=== PATIENT | female | born 1965 | race Caucasian/White ===

== ENCOUNTER 2018-02-27 10:50 | Inpatient (IN) | payer MEDICAID ==
[~2018-02-27] VITALS: Ht 167.6 cm; Wt 103.5 kg
[~2018-02-27 10:50] MED LIST: ACET-1025 PO
[2018-02-27] MEDS ORDERED: HYDR-565 PO (10:59)
[2018-02-27] MEDS ORDERED: CHOL10002 PO (11:00)
[2018-02-27] MEDS ORDERED: CALC-854 PO (11:00)
[2018-02-27] MEDS ORDERED: DIPH25CA83 PO (11:01)
[2018-02-27] MEDS ORDERED: ESTR1TAB19 PO (11:02)
[2018-02-27] MEDS ORDERED: PROP20TA6 PO (11:03)
[2018-02-27] MEDS ORDERED: FURO-150 PO (11:04)
[2018-02-27] MEDS ORDERED: VENL75CA61 PO (11:04)
[2018-02-27] MEDS ORDERED: VITA1TAB20 PO (11:05)
[2018-02-27 11:41] LABS: BASOPHILS % (AUTO) 0.5 % (0-1); EOSINOPHILS # (AUTO) 0.2 X10'3 (0-0.9); EOSINOPHILS % (AUTO) 4.4 % (0-6); LYMPHOCYTES # (AUTO) 1.3 X10'3 (1.1-4.8); LYMPHOCYTES % (AUTO) 33.1 % (21-51); MEAN CORPUSCULAR HGB CONC 34.6 % (33.0-36.5); MEAN CORPUSCULAR VOLUME 101.3 FL (78-98); MONOCYTES # (AUTO) 0.4 X10'3 (0-0.9); MONOCYTES % (AUTO) 9.5 % (2-12); NEUTROPHILS # (AUTO) 2.1 X10'3 (1.8-7.7); NEUTROPHILS % (AUTO) 52.5 % (42-75); PRE OP HEMATOCRIT 35.2 % (35.0-45.0); PRE OP HEMOGLOBIN 12.2 g/dL (12.0-16.0); PRE OP PLATELET COUNT 217 X10'3 (140-440); RED BLOOD COUNT 3.48 X10'6 (4.20-5.60); RED CELL DISTRIBUTION WIDTH 12.4 % (11.5-14.5)
[2018-02-27 11:49] LABS: PRE OP PROTIME 10.1 SECONDS (9.0-12.0)
[2018-02-27 11:57] LABS: ALBUMIN 3.4 G/DL (3.4-5.0); ALBUMIN/GLOBULIN RATIO 1.1 (1.1-1.5); ALKALINE PHOSPHATASE 90 IU/L (46-116); BLOOD UREA NITROGEN 9 MG/DL (7-18); BUN/CREATININE RATIO 14.3 (6.6-38.0); CALCIUM 8.7 MG/DL (8.5-10.1); CHLORIDE 104 MMOL/L (99-107); CREATININE 0.63 MG/DL (0.40-0.90); PRE OP ALT 25 U/L (30-65); PRE OP ANION GAP 8 (8-16); PRE OP AST 32 U/L (10-37); PRE OP BILIRUB, TOTAL 0.5 MG/DL (0.0-1.0); PRE OP GLUCOSE 141 MG/DL (70-104); PRE OP POTASSIUM 4.1 MMOL/L (3.4-5.1); PRE OP SODIUM 139 MMOL/L (135-145); TOTAL CARBON DIOXIDE 26.9 MMOL/L (24-32); TOTAL PROTEIN 6.4 G/DL (6.4-8.2); eGFR > 90 ML/MIN
[2018-02-28] VITALS (20 sets, daily range): BP systolic 87–135; BP diastolic 49–88
[2018-02-28] MEDS ORDERED: ringers solution, lacted 1,000 ML IV SCH ×2 (05:00→10:57)
[2018-02-28] MEDS ORDERED: ceFAZolin inj. 2,000 MG in normal saline 100ml IV soln 100 ML IV ONE (05:30)
[2018-02-28] MEDS ORDERED: VANCOMYCIN INJ 1000 MG in NORMAL SALINE 250ml IV.SOLN IV ONE (05:30)
[2018-02-28] MEDS ORDERED: tranexamic acid inj. 1,000 MG in normal saline 100ml IV soln 90 ML IV ONE ×2 (05:30→09:30)
[2018-02-28] MEDS ORDERED: DOCUMENT DATE & TIME OF BETA-BLOCKER PO ONE (05:30)
[2018-02-28] MEDS ORDERED: famotidine 20mg tablet PO ONE (05:30)
[2018-02-28] MEDS ORDERED: ketorolac trometh. 30mg/ml inj. ONE (06:50)
[2018-02-28] MEDS ORDERED: ROPIVAcaine 0.5% (5mg/ml) 30ml vial ONE ×2 (06:51→07:12)
[2018-02-28] MEDS ORDERED: vancomycin 1,000mg inj ONE (06:51)
[2018-02-28] MEDS ORDERED: LIDOcaine 1% (10mg/ml) 2ml vial ONE (07:26)
[2018-02-28] MEDS ORDERED: ketorolac trometh. 30mg/ml inj. IM ONE (09:38)
[2018-02-28] MEDS ORDERED: ROPIVAcaine 0.5% (5mg/ml) 30ml vial IJ ONE (09:39)
[2018-02-28] MEDS ORDERED: tetracaine 1% (10mg/ml) pres. free inj. ONE (09:59)
[2018-02-28] MEDS ORDERED: BUPIVAcaine 0.5% inj/PF 30 ml vial ONE (10:00)
[2018-02-28] MEDS ORDERED: morphine /PF 1mg/ml 10ml inj. ONE (10:01)
[2018-02-28] MEDS ORDERED: MIDAZolam 1mg/ml 10ml vial ONE (10:01)
[2018-02-28] MEDS ORDERED: fentaNYL/PF 50MCG/1 ML 2ML syringe ONE (10:02)
[2018-02-28] MEDS ORDERED: propofol inj 20 ML IV ONE ×5 (10:14→11:52)
[2018-02-28] MEDS ORDERED: MIDAZolam 5mg/ml 2ml vial ONE (10:23)
[2018-02-28] MEDS ORDERED: diphenhydrAMINE 50 mg/ml inj ONE (10:25)
[2018-02-28] MEDS ORDERED: ondansetron/PF 4mg/2ml inj IV PRN (11:00)
[2018-02-28] MEDS ORDERED: morphine 4 MG/ML inj SYRINge IV PRN ×2 (11:00)
[2018-02-28] MEDS ORDERED: hydrALAZINE 20mg/ml inj. IV PRN (11:00)
[2018-02-28] MEDS ORDERED: fentaNYL/PF 50MCG/1 ML 2ML syringe IV PRN ×2 (11:00)
[2018-02-28] MEDS ORDERED: labetalol 20mg/4ml (5mg/ml) syringe IV PRN (11:00)
[2018-02-28] MEDS ORDERED: acetaminophen 325mg tablet PO PRN ×2 (13:10)
[2018-02-28] MEDS ORDERED: bisacodyl 10mg suppository rectal RC PRN (13:10)
[2018-02-28] MEDS ORDERED: diphenhydrAMINE 25mg capsule PO PRN ×2 (13:10)
[2018-02-28] MEDS ORDERED: HYDROmorphone inj. 0.5 MG/0.5 ML DISP.SYRIN IV PRN ×2 (13:10)
[2018-02-28] MEDS ORDERED: furosemide 20MG tablet PO PRN (13:10)
[2018-02-28] MEDS: ondansetron/PF 4mg/2ml inj IV PRN (14:31)
[2018-02-28] MEDS: ceFAZolin 1GM/D5W- ADD-VANTAGE 50 ML IV SCH (15:19)
[2018-02-28] MEDS: potassium cl 20mEq in 1/2 NS 1,000 ML IV SCH (15:19)
[2018-02-28] MEDS: ketorolac tromethamine 15mg/ml inj. IV SCH ×2 (15:20→20:41)
[2018-02-28] MEDS: acetaminophen 325mg tablet PO SCH ×2 (15:21→20:42)
[2018-02-28] MEDS ORDERED: vancomycin/NS 1 GM ADD-VANTAGE 250 ML IV SCH (20:00)
[2018-02-28] MEDS: estradiol 1mg tablet PO SCH (20:42)
[2018-02-28] MEDS: venlafaxine XR 75mg capsule (Q24H) PO SCH (20:42)
[2018-02-28] MEDS: gabapentin 300mg capsule PO SCH (20:43)
[2018-02-28] MEDS: sennosides 8.6mg tablet PO SCH (20:43)
[2018-02-28] MEDS: vitamin B comp w/Vit. C tab 1 TAB TABLET PO SCH (20:43)
[2018-02-28] MEDS: oxyCODONE IR 5mg (immed. release) tablet PO PRN (22:27)
[2018-03-01] MEDS: ceFAZolin 1GM/D5W- ADD-VANTAGE 50 ML IV SCH (00:03)
[2018-03-01] MEDS: potassium cl 20mEq in 1/2 NS 1,000 ML IV SCH ×2 (00:04→08:32)
[2018-03-01] MEDS: ketorolac tromethamine 15mg/ml inj. IV SCH ×2 (01:29→08:34)
[2018-03-01] MEDS: acetaminophen 325mg tablet PO SCH ×4 (01:30→20:13)
[2018-03-01] MEDS: oxyCODONE IR 5mg (immed. release) tablet PO PRN ×3 (01:31→12:04)
[2018-03-01 02:26] VITALS: BP 95/54
[2018-03-01 06:10] LABS: BASOPHILS % (AUTO) 0.4 % (0-1); EOSINOPHILS # (AUTO) 0.1 X10'3 (0-0.9); EOSINOPHILS % (AUTO) 2.2 % (0-6); HEMATOCRIT 25.4 % (35.0-45.0); HEMOGLOBIN 8.7 g/dl (12.0-16.0); LYMPHOCYTES # (AUTO) 1.3 X10'3 (1.1-4.8); LYMPHOCYTES % (AUTO) 20.9 % (21-51); MEAN CORPUSCULAR HEMOGLOBIN 35.3 PG (27.0-31.0); MEAN CORPUSCULAR HGB CONC 34.4 % (33.0-36.5); MEAN CORPUSCULAR VOLUME 102.9 FL (78-98); MEAN PLATELET VOLUME 7.5 FL (7.4-10.4); MONOCYTES # (AUTO) 0.5 X10'3 (0-0.9); MONOCYTES % (AUTO) 8.3 % (2-12); NEUTROPHILS # (AUTO) 4.1 X10'3 (1.8-7.7); NEUTROPHILS % (AUTO) 68.2 % (42-75); PLATELET COUNT 174 X10'3 (140-440); RED BLOOD COUNT 2.47 X10'6 (4.20-5.60); RED CELL DISTRIBUTION WIDTH 12.4 % (11.5-14.5); WHITE BLOOD COUNT 6.1 X10'3 (4.5-11.0)
[2018-03-01 06:19] LABS: ANION GAP 6 (8-16); CHLORIDE 108 MMOL/L (99-107); POTASSIUM 4.2 MMOL/L (3.5-5.1); SODIUM 139 MMOL/L (135-145); TOTAL CARBON DIOXIDE 25.2 MMOL/L (24-32)
[2018-03-01] MEDS ORDERED: aspirin 325mg tablet PO SCH (08:30)
[2018-03-01] MEDS: vitamin D (cholecalciferol) 1,000 unit tablet PO SCH (08:36)
[2018-03-01] MEDS: calcium carbonate/vitamin D3 tablet PO SCH (08:36)
[2018-03-01] MEDS: gabapentin 300mg capsule PO SCH ×3 (08:36→20:14)
[2018-03-01] MEDS: vitamin B comp w/Vit. C tab 1 TAB TABLET PO SCH ×2 (08:38→20:13)
[2018-03-01] MEDS: propranolol 10mg tablet PO SCH (08:38)
[2018-03-01] MEDS: enoxaparin 30mg/0.3ml syringe SUBCUT SCH (08:42)
[2018-03-01 12:20] VITALS: BP 122/65
[2018-03-01 14:00] VITALS: BP 99/64
[2018-03-01] MEDS: oxyCODONE/APAP 10/325mg tablet PO PRN ×2 (15:30→20:13)
[2018-03-01 18:00] VITALS: BP 107/67
[2018-03-01] MEDS: sennosides 8.6mg tablet PO SCH (20:13)
[2018-03-01] MEDS: celeCOXIB 100mg capsule PO SCH (20:14)
[2018-03-01] MEDS: venlafaxine XR 75mg capsule (Q24H) PO SCH (20:14)
[2018-03-01] MEDS: estradiol 1mg tablet PO SCH (20:14)
[2018-03-01 22:00] VITALS: BP 105/52
[2018-03-02] MEDS: oxyCODONE/APAP 10/325mg tablet PO PRN ×5 (00:37→20:35)
[2018-03-02] MEDS: acetaminophen 325mg tablet PO SCH ×2 (01:47→08:00)
[2018-03-02 05:00] VITALS: BP 155/77
[2018-03-02 06:09] LABS: BASOPHILS % (AUTO) 0.3 % (0-1); EOSINOPHILS # (AUTO) 0.2 X10'3 (0-0.9); EOSINOPHILS % (AUTO) 3.8 % (0-6); HEMATOCRIT 24.7 % (35.0-45.0); HEMOGLOBIN 8.5 g/dl (12.0-16.0); LYMPHOCYTES % (AUTO) 18.8 % (21-51); MEAN CORPUSCULAR HEMOGLOBIN 35.3 PG (27.0-31.0); MEAN CORPUSCULAR HGB CONC 34.4 % (33.0-36.5); MEAN CORPUSCULAR VOLUME 102.7 FL (78-98); MEAN PLATELET VOLUME 7.6 FL (7.4-10.4); MONOCYTES # (AUTO) 0.5 X10'3 (0-0.9); MONOCYTES % (AUTO) 9.6 % (2-12); NEUTROPHILS # (AUTO) 3.7 X10'3 (1.8-7.7); NEUTROPHILS % (AUTO) 67.5 % (42-75); PLATELET COUNT 155 X10'3 (140-440); RED CELL DISTRIBUTION WIDTH 12.7 % (11.5-14.5); WHITE BLOOD COUNT 5.4 X10'3 (4.5-11.0)
[2018-03-02] MEDS: celeCOXIB 100mg capsule PO SCH ×2 (07:50→19:51)
[2018-03-02] MEDS: propranolol 10mg tablet PO SCH (07:50)
[2018-03-02] MEDS: gabapentin 300mg capsule PO SCH ×3 (07:50→19:51)
[2018-03-02] MEDS: calcium carbonate/vitamin D3 tablet PO SCH (07:51)
[2018-03-02] MEDS: vitamin D (cholecalciferol) 1,000 unit tablet PO SCH (07:51)
[2018-03-02] MEDS: vitamin B comp w/Vit. C tab 1 TAB TABLET PO SCH ×2 (07:51→19:51)
[2018-03-02] MEDS: enoxaparin 30mg/0.3ml syringe SUBCUT SCH (07:52)
[2018-03-02] MEDS: HYDROmorphone 1 mg/ml syringe ONE ×2 (07:55→07:57)
[2018-03-02 10:00] VITALS: BP 131/87
[2018-03-02] MEDS: magnesium hydroxide 30ml (MOM) UD suspension PO PRN (11:10)
[2018-03-02] MEDS ORDERED: HYDROmorphone 1 mg/ml syringe ONE (12:32)
[2018-03-02] MEDS ORDERED: HYDROmorphone 1 mg/ml syringe IV PRN ×2 (12:34→12:40)
[2018-03-02 18:00] VITALS: BP 147/86
[2018-03-02] MEDS: estradiol 1mg tablet PO SCH (19:52)
[2018-03-02] MEDS: sennosides 8.6mg tablet PO SCH (19:52)
[2018-03-02] MEDS: venlafaxine XR 75mg capsule (Q24H) PO SCH (20:04)
[2018-03-02 22:00] VITALS: BP 137/81
[2018-03-03] MEDS: oxyCODONE/APAP 10/325mg tablet PO PRN ×6 (00:17→20:57)
[2018-03-03 05:58] LABS: BASOPHILS % (AUTO) 0.6 % (0-1); EOSINOPHILS # (AUTO) 0.2 X10'3 (0-0.9); EOSINOPHILS % (AUTO) 4.8 % (0-6); HEMATOCRIT 24.6 % (35.0-45.0); HEMOGLOBIN 8.4 g/dl (12.0-16.0); LYMPHOCYTES # (AUTO) 1.4 X10'3 (1.1-4.8); LYMPHOCYTES % (AUTO) 29.9 % (21-51); MEAN CORPUSCULAR HGB CONC 34.3 % (33.0-36.5); MEAN CORPUSCULAR VOLUME 101.9 FL (78-98); MEAN PLATELET VOLUME 6.9 FL (7.4-10.4); MONOCYTES # (AUTO) 0.4 X10'3 (0-0.9); MONOCYTES % (AUTO) 9.6 % (2-12); NEUTROPHILS # (AUTO) 2.5 X10'3 (1.8-7.7); NEUTROPHILS % (AUTO) 55.1 % (42-75); PLATELET COUNT 193 X10'3 (140-440); RED BLOOD COUNT 2.41 X10'6 (4.20-5.60); RED CELL DISTRIBUTION WIDTH 12.4 % (11.5-14.5); WHITE BLOOD COUNT 4.5 X10'3 (4.5-11.0)
[2018-03-03 06:00] VITALS: BP 146/78
[2018-03-03] MEDS: vitamin B comp w/Vit. C tab 1 TAB TABLET PO SCH ×2 (07:55→20:18)
[2018-03-03] MEDS: gabapentin 300mg capsule PO SCH ×3 (07:55→20:18)
[2018-03-03] MEDS: propranolol 10mg tablet PO SCH (07:55)
[2018-03-03] MEDS: celeCOXIB 100mg capsule PO SCH ×2 (07:55→20:17)
[2018-03-03] MEDS: vitamin D (cholecalciferol) 1,000 unit tablet PO SCH (07:55)
[2018-03-03] MEDS: calcium carbonate/vitamin D3 tablet PO SCH (07:55)
[2018-03-03] MEDS: enoxaparin 30mg/0.3ml syringe SUBCUT SCH (07:55)
[2018-03-03] MEDS ORDERED: ENOX30DI4 SUBCUT (07:56)
[2018-03-03] MEDS: magnesium hydroxide 30ml (MOM) UD suspension PO PRN (08:06)
[2018-03-03 10:00] VITALS: BP 118/78
[2018-03-03 18:00] VITALS: BP 133/77
[2018-03-03] MEDS: venlafaxine XR 75mg capsule (Q24H) PO SCH (20:17)
[2018-03-03] MEDS: sennosides 8.6mg tablet PO SCH (20:18)
[2018-03-03] MEDS: estradiol 1mg tablet PO SCH (20:19)
[2018-03-03 22:00] VITALS: BP 112/67
[2018-03-04] MEDS: oxyCODONE/APAP 10/325mg tablet PO PRN ×2 (02:56→07:50)
[2018-03-04] MEDS: ondansetron/PF 4mg/2ml inj IV PRN (02:56)
[2018-03-04 05:00] VITALS: BP 115/76
[2018-03-04] MEDS: propranolol 10mg tablet PO SCH (07:49)
[2018-03-04] MEDS: celeCOXIB 100mg capsule PO SCH (07:49)
[2018-03-04] MEDS: enoxaparin 30mg/0.3ml syringe SUBCUT SCH (07:49)
[2018-03-04] MEDS: vitamin D (cholecalciferol) 1,000 unit tablet PO SCH (07:49)
[2018-03-04] MEDS: calcium carbonate/vitamin D3 tablet PO SCH (07:49)
[2018-03-04] MEDS: gabapentin 300mg capsule PO SCH (07:49)
[2018-03-04] MEDS: vitamin B comp w/Vit. C tab 1 TAB TABLET PO SCH (07:49)
[2018-03-04 10:00] VITALS: BP 89/56
== END 2018-03-04 11:52 | disposition home or self-care (01) | DRG 302 ==
LOC: EDSTATUS 10:50 → PAS IN 02-28 07:05 → EDSTATUS 02-28 10:00 → ORTHO 4S 02-28 14:10
PROVIDERS: ADMIT Orthopaedic Surgery; ATTEND Orthopaedic Surgery
PROC: 8E0YXBZ Computer Assisted Procedure of Lower Extremity (ICD-10-PCS; 2018-02-28)
PROC: 8E0Y0CZ Robotic Assisted Procedure of Lower Extremity, Open Approach (ICD-10-PCS; 2018-02-28)
PROC: 0SRD0J9 Replacement of Left Knee Joint with Synthetic Substitute, Cemented, Open Approach (ICD-10-PCS; principal; 2018-02-28 09:43)
DX: M17.32 Unilateral post-traumatic osteoarthritis, left knee (principal); D62 Acute posthemorrhagic anemia; F32.9 Major depressive disorder, single episode, unspecified; F41.9 Anxiety disorder, unspecified; G89.29 Other chronic pain; Z86.718 Personal history of other venous thrombosis and embolism; Z98.84 Bariatric surgery status; Z90.710 Acquired absence of both cervix and uterus; Z79.899 Other long term (current) drug therapy
CPT/HCPCS: 36415; 80051; 80053; 85025; 85610; 85730; 87070; 97110; 97116; 97161; 97530; A6255; A6455; A7000; C1713; C1758; C1776; J0690; J1170; J1200; J1650; J1885; J2250; J2274; J2405; J2704; J2795; J3010; J3370; J3490; J7030; J7120; Q0163